=== PATIENT | female | born 1980 | race Caucasian/White ===

== ENCOUNTER 2021-05-25 18:10 | Emergency (ER) | payer MEDICAID, SELFPAY ==
--- NOTE | 2021-05-25 | ECG_ITS ---
Test Reason : CP Blood Pressure : / mmHG Vent. Rate : 097 BPM Atrial Rate : 097 BPM P-R Int : 156 ms QRS Dur : 092 ms QT Int : 370 ms P-R-T Axes : 044 011 043 degrees QTc Int : 469 ms Normal sinus rhythm Normal ECG No previous ECGs available Referred By: Generic ED Physician Electronically Signed By:JAKE AMADOR
[2021-05-25 18:12] VITALS: BP 143/81; PULSE 98; RESP 16; TEMP 36.6; O2SAT 98; BMI 42.5
--- NOTE | 2021-05-25 20:06 | ED_ITS ---
HPI - General Adult General Chief complaint: General Medical Stated complaint: cp Time Seen by Provider: 05/25/21 20:06 Source: patient Mode of arrival: ambulatory Limitations: no limitations History of Present Illness HPI narrative: Patient's history of mild asthma no known coronary artery disease complaining of chest pains since yesterday 19:00 feel pain shark sharp pain lasting for 15 minutes associated with left arm numbness again today she had pain at 16:00 lasting for few minutes no shortness of breath no diaphoresis no relation of pain with deep breaths or left arm movements no chest pain at this time patient never had any similar pain in the past no long distance travel no leg pain Related Data Allergies Allergy/AdvReac Type Severity Reaction Status Date / Time Penicillins [PENICILLINS] Allergy Severe HIVES Unverified 06/11/20 17:56 Review of Systems Review of Systems: Yes all other systems are reviewed and are negative [facility] Social History Social History Advance Directives: No Physical Exam Vital Signs: Vital Signs: Last Vital Signs Temp 98.1 F 05/25/21 20:19 Pulse 87 05/25/21 20:19 Resp 18 05/25/21 20:19 BP 141/93 H 05/25/21 20:19 Pulse Ox 99 05/25/21 20:19 Body Mass Index 42.5 Appearance: Alert. Oriented X3. No acute distress. Eyes: No pallor/ icterus ENT: Pharynx normal. Oral Mucosa moist Neck: Normal inspection. Neck supple. CVS: Normal heart rate and rhythm. Pulses normal. Respiratory: No respiratory distress. Equal air entry bilateral, no wheezing/rales/rhonchi Abdomen: Soft and nontender. Bowel sounds are present, no mass palpable, no CVA tenderness Skin: Skin warm and dry. Normal skin color. Normal skin turgor. Extremities: No lower extremity edema. No calf tenderness Neuro: Oriented X 3. Medical Decision Making MDM Narrative Medical decision making narrative: Paper atypical chest pain for more than 6 hours duration EKG was normal no acute ischemic changes lab test high sensitive troponin, D-dimer negative patient pain likely musculoskeletal. No chest pain at this time in the ER will discharge patient home Lab Data Lab results reviewed: Yes I reviewed the patient's lab results. Result diagrams: 05/25/21 20:42 05/25/21 20:42 Labs: Lab Results 05/25/21 05/25/21 05/25/21 Range/Units 20:42 20:42 20:42 WBC 8.9 (4.8-10.8) X10*3/uL RBC 4.31 (4.20-5.50) X10*6/uL Hgb 13.4 (12.0-16.0) g/dl Hct 39.0 (37-47) % MCV 90.5 (80-98) fL MCH 31.1 (27.0-33.0) pg MCHC 34.4 (31.0-35.0) g/dl RDW 12.5 (11.0-16.0) % Plt Count 211 (160-400) X10*3/uL MPV 10.4 (9.4-12.3) fL Immature Gran % (Auto) 0.2 (0.0-0.4) % Neut % (Auto) 72.1 (45-73) % Lymph % (Auto) 22.0 (20-40) % Chilton % (Auto) 5.0 (2-11) % Eos % (Auto) 0.3 (0-4) % Baso % (Auto) 0.4 (0-2) % Lymph # (Auto) 2.0 (1.2-4.9) X10*3/uL Chilton # (Auto) 0.5 (0.1-1.2) X10*3/uL Eos # (Auto) 0.0 (0.0-0.4) X10*3/uL Baso # (Auto) 0.0 (0.0-0.2) X10*3/uL Abs Immat Gran (auto) 0.02 (0.00-0.03) X10*3/uL Absolute Neuts (auto) 6.4 (2.0-8.3) X10*3/uL Absolute Nucleated RBC 0.000 (0.0-0.012) X10*3/uL Nucleated RBC % (auto) 0.0 (0.0-0.2) /100WBC D-Dimer < 200 NG/ML Sodium 138 (135-145) mmol/L Potassium 3.5 (3.3-5.1) mmol/L Chloride 108 (96-108) mmol/L Carbon Dioxide 21 L (22-29) mmol/L Anion Gap 13 (12-20) BUN 12 (9-16) mg/dL Creatinine 0.69 (0.5-1.4) mg/dL Estim Creat Clear Calc 149.4 Estimated GFR > 60 Random Glucose 95 (60-115) mg/dL Calcium 9.4 (8.4-10.2) mg/dL Troponin I High Sens (<3.5-17.0) ng/L 05/25/21 Range/Units 20:42 WBC (4.8-10.8) X10*3/uL RBC (4.20-5.50) X10*6/uL Hgb (12.0-16.0) g/dl Hct (37-47) % MCV (80-98) fL MCH (27.0-33.0) pg MCHC (31.0-35.0) g/dl RDW (11.0-16.0) % Plt Count (160-400) X10*3/uL MPV (9.4-12.3) fL Immature Gran % (Auto) (0.0-0.4) % Neut % (Auto) (45-73) % Lymph % (Auto) (20-40) % Chilton % (Auto) (2-11) % Eos % (Auto) (0-4) % Baso % (Auto) (0-2) % Lymph # (Auto) (1.2-4.9) X10*3/uL Chilton # (Auto) (0.1-1.2) X10*3/uL Eos # (Auto) (0.0-0.4) X10*3/uL Baso # (Auto) (0.0-0.2) X10*3/uL Abs Immat Gran (auto) (0.00-0.03) X10*3/uL Absolute Neuts (auto) (2.0-8.3) X10*3/uL Absolute Nucleated RBC (0.0-0.012) X10*3/uL Nucleated RBC % (auto) (0.0-0.2) /100WBC D-Dimer NG/ML Sodium (135-145) mmol/L Potassium (3.3-5.1) mmol/L Chloride (96-108) mmol/L Carbon Dioxide (22-29) mmol/L Anion Gap (12-20) BUN (9-16) mg/dL Creatinine (0.5-1.4) mg/dL Estim Creat Clear Calc Estimated GFR Random Glucose (60-115) mg/dL Calcium (8.4-10.2) mg/dL Troponin I High Sens < 3.5 (<3.5-17.0) ng/L ECG Data Attestation: I personally reviewed and interpreted this ECG as follows: Interpretation: Numbers and rhythm heart rate 97 beats per minute normal intervals normal axis no acute ST T wave changes impression normal EKG Scores Heart Score History: -0- slightly suspicious ECG: -0- normal Age: -0- < or = 45 Risk factory: -0- no risk factors known Troponin: -0- < or = normal limit Score: 0 Risk: 1.7% Discharge Plan Discharge Clinical Impression: Chest pain Qualifiers: Chest pain type: unspecified Qualified Code(s): R07.9 - Chest pain, unspecified Patient Disposition: Home, Self-Care Instructions: Chest Pain (ED) Additional Instructions: The chest pain is likely musculoskeletal. Follow up with PCP for further evaluation including stress test
[2021-05-25 20:19] VITALS: BP 141/93; PULSE 87; RESP 18; TEMP 36.7; O2SAT 99
[2021-05-25 20:48] LABS: Basophils Percent Auto 0.4 % (0-2); Eosinophils Percent Auto 0.3 % (0-4); Hemoglobin 13.4 g/dl (12.0-16.0); Imm Gran Abs Auto 0.02 X10*3/uL (0.00-0.03); Imm Gran Pct Auto 0.2 % (0.0-0.4); MANUAL DIFF FLAG NO; Mean Corpuscular HGB Conc 34.4 g/dl (31.0-35.0); Mean Corpuscular Hemoglobin 31.1 pg (27.0-33.0); Mean Corpuscular Volume 90.5 fL (80-98); Mean Platelet Volume 10.4 fL (9.4-12.3); Monocytes Absolute Auto 0.5 X10*3/uL (0.1-1.2); Neutrophils Absolute Auto 6.4 X10*3/uL (2.0-8.3); Neutrophils Percent Auto 72.1 % (45-73); Platelet Count 211 X10*3/uL (160-400); Red Blood Count 4.31 X10*6/uL (4.20-5.50); Red Cell Distribution Width 12.5 % (11.0-16.0); White Blood Count 8.9 X10*3/uL (4.8-10.8)
[2021-05-25 20:58] LABS: D Dimer < 200 NG/ML
[2021-05-25 21:11] LABS: Anion Gap 13 (12-20); Blood Urea Nitrogen 12 mg/dL (9-16); Calcium 9.4 mg/dL (8.4-10.2); Carbon Dioxide 21 mmol/L (22-29); Chloride 108 mmol/L (96-108); Creatinine Clr Calc Pharmacy 149.4; Estimated Glomerular Filt Rate > 60; Glucose Random 95 mg/dL (60-115); Potassium 3.5 mmol/L (3.3-5.1); Sodium 138 mmol/L (135-145)
[2021-05-25 21:19] LABS: Troponin-I High Sensitivity < 3.5 ng/L (<3.5-17.0)
== END 2021-05-25 21:43 | disposition home or self-care (01) ==
PROVIDERS: Emergency Provider Internal Medicine; PCP Student in an Organized Health Care Education/Training Program
DX: R07.9 Chest pain, unspecified (principal)
CPT/HCPCS: 36415; 80048; 84484; 85025; 85379; 93005; 99283; 99284

== ENCOUNTER 2025-01-31 10:29 | Outpatient (REF) | payer OTHER, SELFPAY ==
--- OUTSIDE RECORDS SUMMARY | 2025-01-31 10:59 | XMS_ITS | Encounter Summary ---
Author Organization [employer] Address [address] [facility] [address] [place] [address] Care Team Providers Care Veneer Layer Name Role Phone Loretta Sullivan MD Primary Care Provider [phone] Reason for Visit * Reason Onset Date Comments Medication Question 10/17/2024 Med Refill 10/17/2024 Encounter Details Date Type Department Care Team ([facility] st Contact Info) Description 10/17/2024 Telephone [facility] [address] [place] [address] Loretta Sullivan MD [address] [place] [address] Medication Question; Med Refill Social History Tobacco Use Types Packs/Day Years Used Date Smoking Tobacco: Never Passive Smoke Exposure: Never Smokeless Tobacco: Never Alcohol Use Standard Drinks/Week Comments Never 0 (1 standard drink = 0.6 oz pur e alcohol) Depression Answer Date Recorded Patient Health Questionnaire-9 Score 2 06/14/2023 Housing Stability Answer Date Recorded What is your housing situation today? I have christopher beckman 07/18/[address] you li ve. Do you have problems with any of the following? None of the above 07/18/2024 Food Insecurity Answer Date Recorded Within the past 12 months, y ou worried that your food would run out before you got money to buy more: Never True 07/18/2024 Within the past 12 months,th e food you bought just didn't last and you didn't have enough money to get more: Never True Transportation Answer Date Recorded In the past 12 months, has l ack of transportation kept you from medical appts, meetings, work or from getting things needed for daily living? No 07/18/2024 Utilities Answer Date Recorded In the past 12 months, has t he electric, gas, oil or water company threatened to shut off services in your home? No 07/18/2024 Depression Answer Date Recorded Patient Health Questionnaire-2 Score 2 06/14/2023 Internet Access Answer Date Recorded Internet Access Q1 Yes 07/18/2024 Internet Access Q2 Not on file 07/18/2024 Comments Unknown Sex and Gender Information Value Date Recorded Sex Assigned at Female 07/25/2022 10:21 AM EDT Legal Sex Female 10:21 AM EDT Gender Identity Female 07/25/2022 10:21 AM EDT Sexual Orientation Straight 07/25/2022 10 :21 AM EDT documented as of this encounter Miscellaneous Notes * Telephone Encounter - Loretta Sullivan MD - 10/22/2024 8:46 AM EST Dose increase after 8 weeks * Telephone Encounter - Ifeoma Rosas RN - 10/21/2024 3:02 PM EST TC to patient. Informed her that RN had not heard from Dr. Sullivan, and advised patient to continue on current medication dose until Dr. Sullivan orders otherwise. Called pharm and patient does have 1 refill available. Reviewed plan with patient who verbally agreed with plan. Patient will call with any other questions or concerns. * Telephone Encounter - Anita Aburto - 10/18/2024 1:04 PM EST Tc from pt requesting status of medication Callback number [phone] * Telephone Encounter - Wilner Foreman - 10/17/2024 11:13 AM EST Tc from pt stating that she finished her first month of the med Tirzepatide-Weight Management (Zepbound) 2.5 MG/0.5ML solution auto-injector Pt needs a refill but doesn't know id she will be receiving a Increase in the Dosage of the Medication or if its staying the same. Contact pt at [phone] documented in this encounter Plan of Treatment Upcoming Encounters Date Type Department Care Team ([facility] st Contact Info) Description 05/09/2025 11:30 AM EDT Office Visit [facility] [address] [place] [address] Loretta Sullivan MD [address] [place] [address] documented as of this encounter Visit Diagnoses Not on filedocumented in this encounter Additional Health Concerns Assessment Noted Time PHQ-9 Depression Total Score: 2 06/14/20 23 9:46 AM EDT documented as of this encounter Care Teams Veneer Layer Relationship Specialty Start Date End Date Loretta Sullivan MD [address] [place] [id number] PCP - General Family Medicine 10/01/13 documented as of this encounter
--- OUTSIDE RECORDS SUMMARY | 2025-01-31 10:59 | XMS_ITS | Clinical Summary ---
Author Organization [facility] Address [address] [place] [address] Phone Care Team Providers Care Rn Pacu Name Role Phone Loretta Sullivan MD Primary Care Provider [phone] Social History Tobacco Use Types Packs/Day Years Used Date Smoking Tobacco: Never Assessed Comments No Sex and Gender Information Value Date Recorded Sex Assigned at Female 09/17/2024 8:41 AM EST Legal Sex Female 10:16 AM EST Gender Identity Female 09/17/2024 8:41 AM EST Sexual Orientation Straight 09/17/2024 8: 41 AM EST Obstetrics History Para Term AB IAB SAB Ectopic Multiple Livin g Live Births 2 Last Filed Vital Signs Vital Sign Reading Time Taken Comments Blood Pressure 130/70 07/15/2022 9:08 AM EDT Pulse 104 07/15/2022 9:08 AM EDT Temperature - - Respiratory Rate - - Oxygen Saturation - - Inhaled Oxygen Concentration - - Weight 137 kg (301 lb) 09/20/2024 11:26 AM EST Height 172.7 cm (5' 8 ) 09/20/2024 11:26 AM EST Body Mass Index 45.77 09/20/2024 11:26 AM EST Plan of Treatment Upcoming Encounters Date Type Department Care Team (Late st Contact Info) Description 09/22/2025 11:00 AM EST Appointment [facility] [address] [place] [address] Health Maintenance Due Date Last Done Comments Hepatitis B Vaccines (1 of 3 - 19+ 3-dose series) 1998 Pneumococcal Vaccine: Pediatrics (0 to 5 Years) and At-Risk Patients (6 to 64 Years) (1 of 2 - PCV) 1998 Cervical Cancer Screening: Pap Smear 2000 Colorectal Cancer Screening: Colonoscopy 09/04/2022 HIV Screening 09/04/2022 Hepatitis C Screening 09/04/2022 Social Influencers of Health Screening 09/04/2022 COVID-19 Vaccine (3 - season) 2024 01/01/2021, 12/11/2020 Depression Screening 06/14/2024 06/14/2023 Breast Cancer Screening 09/20/2026 09/20/2024, 07/18 Cholesterol Screening (Lipid Panel) 12/13/2026 12/13/2021 DTaP,Tdap,and Td Vaccines (3 - Td or Tdap) 02/01/2028 01/31/2018, 09/27/2004 Influenza Vaccine Completed 07/04/2024, , 06/21/2022, Additional history exists HIB Vaccines Aged Out No longer eligi ble based on patient's age to complete this topic HPV Vaccines Aged Out No longer eligi ble based on patient's age to complete this topic Hepatitis A Vaccines Aged Out No long er eligible based on patient's age to complete this topic IPV Vaccines Aged Out No longer eligi ble based on patient's age to complete this topic MMR Vaccines Aged Out No longer eligi ble based on patient's age to complete this topic Meningococcal ACWY Vaccine Aged Out N o longer eligible based on patient's age to complete this topic Meningococcal B Vaccine Aged Out No l onger eligible based on patient's age to complete this topic RSV Immunization Patients Under 20 months Aged Out No longer eligible based on patient's age to complete this topic Varicella Vaccines Aged Out No longer eligible based on patient's age to complete this topic Procedures Procedure Name Priority Date/Time Associated Diagnosis Comments MG MAMMO DIGITAL DIAGNOSTIC BILAT Routine 09/20/2024 1:06 PM EST Other abnormal and inconclusive findings on diagnostic imaging of breast from Last 3 Months or Most Recently Relevant to Health Maintenance Results * MG Mammo Digital Diagnostic bilat (09/20/2024 1:06 PM EST) Anatomical Region Laterality Modality Breast Bilateral Mammography 09/20/2024 11:5 2 AM EST Impressions 09/20/2024 12:00 PM EST No mammographic evidence of malignancy. A negative mammogram in the presence of a clinically suspicious palpable abnormality does not preclude the possibility of malignancy or alter the indications for biopsy. PQRI CPT II 3342F Code 89885, 83531 PQRI 225 CPT II 7025F TISSUE DENSITY: The breasts are almost entirely fatty. (BI-RADS ??Category A) IMPRESSION: Benign. ??Resumption of routine annual mammography is recommended. BI-RADS CATEGORY: 2 - BENIGN RECOMMENDATION: Screening bilateral mammogram is recommended in 1 year. Mammo Location: [facility], [address] [place] [address] -------- FINAL REPORT -------- Dictated By: Mathew Butler Dictated Date: 09/20/2024 11:52 ET Assigned Physician: Mathew Butler Reviewed and Electronically Signed By: Mathew Butler Signed Date: 09/20/2024 12:00 ET Workstation ID: [id number] Transcribed By: Self Edit Transcribed Date: 09/20/2024 11:52 ET Narrative 09/20/2024 12:00 PM EST CLINICAL: The patient is a 44 years Female presenting for follow-up of a 7 mm diameter asymmetry in the lower inner quadrant of the right breast, and for annual mammography of the left breast. COMPARISON: 03/22/2024, 07/27/2023, and 07/15/2023. ?? TECHNIQUE: Full-field digital mammography of the breasts bilaterally consisting of tomosynthesis in MLO and CC projection is performed in the [employer] 2000-D unit. ??Computer aided detection utilizing the iCAD system was utilized. FINDINGS: The breasts are again seen to be largely fatty replaced. ??The 7 mm diameter asymmetry in the lower inner quadrant of the right breast, containing fat, remains stable. ??There is no suspicious cluster of microcalcifications, mass, or area of architectural distortion in either breast. There is no skin thickening or nipple retraction. Procedure Note Mathew Butler MD - 09/20/2024 CLINICAL: The patient is a 44 years Female presenting for follow-up of a 7mm diameter asymmetry in the lower inner quadrant of the right breast, andfor annual mammography of the left breast. COMPARISON: 03/22/2024, 07/27/2023, and 07/15/2023. TECHNIQUE: Full-field digital mammography of the breasts bilaterallyconsisting of tomosynthesis in MLO and CC projection is performed in the[employer] 2000-D unit. Computer aided detection utilizing the [employer] Health[employer]system was utilized. FINDINGS: The breasts are again seen to be largely fatty replaced. The 7mm diameter asymmetry in the lower inner quadrant of the right breast,containing fat, remains stable. There is no suspicious cluster ofmicrocalcifications, mass, or area of architectural distortion in eitherbreast. There is no skin thickening or nipple retraction. IMPRESSION: No mammographic evidence of malignancy. A negative mammogram in the presence of a clinically suspicious palpableabnormality does not preclude the possibility of malignancy or alter theindications for biopsy. PQRI CPT II 3342F Code 68590, 90981 PQRI 225 CPT II 7025F TISSUE DENSITY: The breasts are almost entirely fatty. (BI-RADS CategoryA) IMPRESSION: Benign. Resumption of routine annual mammography is recommended. BI-RADS CATEGORY: 2 - BENIGN RECOMMENDATION: Screening bilateral mammogram is recommended in 1 year. Mammo Location: [facility], [address] [place] [address] -------- FINAL REPORT -------- Dictated By: Mathew Butler Dictated Date: 09/20/2024 11:52 ET Assigned Physician: Mathew Btuler Reviewed and Electronically Signed By: Mathew Butler Signed Date: 09/20/2024 12:00 ET Workstation ID: [id number] Transcribed By: Self Edit Transcribed Date: 09/20/2024 11:52 ET us Loretta Sullivan MD IMG BI PROCEDURES Final Result from Last 3 Months or Most Recently Relevant to Health Maintenance Insurance MEDICAID - [place] Care Teams Rn Pacu Relationship Specialty Start Date End Date Loretta Sullivan MD [address] [place] [id number] PCP - General Family Medicine 09/20/24
--- OUTSIDE RECORDS SUMMARY | 2025-01-31 10:59 | XMS_ITS | Encounter Summary ---
Author Organization [employer] Address [address] [place] [address] Care Team Providers Care Link Fabric Machine Operator Name Role Phone Loretta Sullivan MD Primary Care Provider [phone] Encounter Details Date Type Department Care Team (Latest Contact Info) Description 01/31/2025 Travel Social History Tobacco Use Types Packs/Day Years [...] AM EDT documented as of this encounter Plan of Treatment Upcoming Encounters Date Type Department Care Team (Late st Contact Info) Description 05/09/2025 11:30 AM EDT Office Visit [facility] [address] [place] [address] Loretta Sullivan MD [address] [place] [address] documented as of this encounter Visit Diagnoses Not on filedocumented in this encounter Additional Health Concerns Assessment Noted Time PHQ-9 Depression Total Score: 2 06/14/20 23 9:46 AM EDT documented as of this encounter Care Teams Link Fabric Machine Operator Relationship Specialty Start Date End Date Loretta Sullivan MD [address] [place] [id number] PCP - General Family Medicine 10/01/13 documented as of this encounter
--- OUTSIDE RECORDS SUMMARY | 2025-01-31 10:59 | XMS_ITS | Encounter Summary ---
Author Organization [employer] Address [address] [facility] [address] [place] [address] Care Team Providers Care Doll Wig Maker Name Role Phone Loretta Sullivan MD Primary Care Provider [phone] Encounter Details Date Type Department Care Team (Late st Contact Info) Description 09/20/2024 Orders Only [place] [facility] [address] [place], [place] [phone] ProviderAllison MD Social History Tobacco Use Types Packs/Day Years [...] Description 05/09/2025 11:30 AM EDT Office Visit [facility] [address] [place] [address] Loretta Sullivan MD [address] [place] [address] documented as of this encounter Procedures Procedure Name Priority Date/Time Associated Diagnosis Comments MAMMO BILATERAL SCREENING W DIAGNOSTIC TOMOSYNTHESIS BILATERAL Routine 09/20/2024 2:58 PM EST documented in this encounter Results * MAMMO BILATERAL SCREENING W DIAGNOSTIC TOMOSYNTHESIS BILATERAL (09/20/2024 2:58 PM EST) Anatomical Region Laterality Modality Mammography Historical Provider MD CHAVES BI PROCEDURES Final R esult documented in this encounter Visit Diagnoses Not on filedocumented in this encounter Additional Health Concerns Assessment Noted Time PHQ-9 Depression Total Score: 2 06/14/20 23 9:46 AM EDT documented as of this encounter Care Teams Doll Wig Maker Relationship Specialty Start Date End Date Loretta Sullivan MD [address] [place] [id number] PCP - General Family Medicine 10/01/13 documented as of this encounter
--- OUTSIDE RECORDS SUMMARY | 2025-01-31 10:59 | XMS_ITS | Encounter Summary ---
Author Organization [employer] Address [address] [facility] [address] [place] [address] Care Team Providers Care Service Center Technician Name Role Phone Loretta Sullivan MD Primary Care Provider [phone] Encounter Details Date Type Department Care Team (Late st Contact Info) Description 03/22/2024 Orders Only [place] [address] [place], [place] [phone] ProviderAllison MD Social History Tobacco Use Types Packs/Day Years Used Date Smoking Tobacco: Never Passive Smoke Exposure: Never Smokeless Tobacco: Never Alcohol Use Standard Drinks/Week Comments Never 0 (1 standard drink = 0.6 oz pur e alcohol) Depression Answer Date Recorded Patient Health Questionnaire-9 Score 2 06/14/2023 Housing Stability Answer Date Recorded What is your housing situation today? I have christopher beckman 07/19/[address] you li ve. Do you have problems with any of the following? None of the above 07/19/2023 Food Insecurity Answer Date Recorded Within the past 12 months, y ou worried that your food would run out before you got money to buy more: Never True 07/19/2023 Within the past 12 months,th e food you bought just didn't last and you didn't have enough money to get more: Never True Transportation Answer Date Recorded In the past 12 months, has l ack of transportation kept you from medical appts, meetings, work or from getting things needed for daily living? No 07/19/2023 Utilities Answer Date Recorded In the past 12 months, has t he electric, gas, oil or water company threatened to shut off services in your home? No 07/19/2023 Depression Answer Date Recorded Patient Health Questionnaire-2 Score 2 06/14/2023 Comments Unknown Sex and Gender Information Value [...] Description 05/09/2025 11:30 AM EDT Office Visit [facility] PEDS [address] [place] [address] Loretta Sullivan MD [address] [place] [address] documented as of this encounter Procedures Procedure Name Priority Date/Time Associated Diagnosis Comments MAMMO DIAGNOSTIC TOMOSYNTHESIS RIGHT Routine 03/22/2024 1:03 PM EDT MAMMO DIAGNOSTIC TOMOSYNTHESIS RIGHT Routine 03/22/2024 1:02 PM EDT documented in this encounter Results * MAMMO DIAGNOSTIC TOMOSYNTHESIS RIGHT (03/22/2024 1:03 PM EDT) Anatomical Region Laterality Modality Mammography Historical Provider MD CHAVES BI PROCEDURES Final R esult * MAMMO DIAGNOSTIC TOMOSYNTHESIS RIGHT (03/22/2024 1:02 PM EDT) Anatomical Region Laterality Modality Mammography Historical Provider MD CHAVES BI PROCEDURES Final R esult documented in this encounter Visit Diagnoses Not on filedocumented in this encounter Additional Health Concerns Assessment Noted Time PHQ-9 Depression Total Score: 2 06/14/20 23 9:46 AM EDT documented as of this encounter Care Teams Service Center Technician Relationship Specialty Start Date End Date Loretta Sullivan MD [address] [place] [id number] PCP - General Family Medicine 10/01/13 documented as of this encounter
--- OUTSIDE RECORDS SUMMARY | 2025-01-31 10:59 | XMS_ITS | Encounter Summary ---
Author Organization [employer] Address [address] [facility] [facility] [address] [place] [address] Care Team Providers Care Director Fraud Name Role Phone Loretta Sullivan MD Primary Care Provider [phone] Reason for Visit * Reason Comments Med Change Request Encounter Details Date Type Department Care Team ([facility] st Contact Info) Description 04/29/2024 Refill [facility] MED & PEDS [address] [place], [place] [phone] Loretta Sullivan MD 505 [place] [address] Social History Tobacco Use Types Packs/Day Years [...] Description 05/09/2025 11:30 AM EDT Office Visit [facility] MED & PEDS 505 [place] [address] Loretta Sullivan MD 505 [place] [address] documented as of this encounter Visit Diagnoses Not on filedocumented in this encounter Additional Health Concerns Assessment Noted Time PHQ-9 Depression Total Score: 2 06/14/20 23 9:46 AM EDT documented as of this encounter Care Teams Director Fraud Relationship Specialty Start Date End Date Loretta Sulilvan MD [address] [place] [address] PCP - General Family Medicine 10/01/13 documented as of this encounter
--- OUTSIDE RECORDS SUMMARY | 2025-01-31 10:59 | XMS_ITS | Encounter Summary ---
Author Organization [employer] Address [address] 7t [place] [address] Care Team Providers Care Pickler Helper Name Role Phone Loretta Sullivan MD Primary Care Provider [phone] Reason for Visit * Reason Onset Date Comments Nurse Triage 01/30/2025 Encounter Details Date Type Department Care Team (Late st Contact Info) Description 01/30/2025 Telephone [facility] MEDICINE [address] [place] [address] Loretta Sullivan MD [address] [place] [address] Nurse Triage Social History Tobacco Use Types Packs/Day Years Used Date Smoking Tobacco: Never Passive Smoke Exposure: Never Smokeless Tobacco: Never Alcohol Use Standard Drinks/Week Comments Never 0 (1 standard drink = 0.6 oz pur e alcohol) Depression Answer Date Recorded Patient Health Questionnaire-9 Score 2 06/14/2023 Housing Stability Answer Date Recorded What is your housing situation today? I have christopheryasmine beckman 07/18/[address] you [...] t he electric, gas, oil or water [employer] threatened to shut off services in your [...] encounter Miscellaneous Notes * Telephone Encounter - Kaley Abdi RN - 01/30/2025 1:00 PM EDT Called pt. She states that she is doing well but, she wants an appt. With her PCP. Pt. States that she has a HX. Of Anxiety but, when she got her Thyroid out x 6 months ago her Anxiety has worsened. Pt. Gets heart racing and worrisome during Anxiety. Pt. States some things have come up in her life that have also increased her Anxiety. Pt. Is receptive to seeing alternate provider. Pt denies any thoughts of suicide or self harm. Pt. Denies any sx. Of Anxiety at present but, wants to address increase in frequency. Appt. Made for pt. To see dr. Ahn on 01/31/25 at 940am in [facility]. Protocol Used: Anxiety and Panic Attack (Adult) Protocol-Based Disposition: See in Office or Video Visit within 2 Weeks Video visit offer not recorded Positive Triage Question: * Symptoms of anxiety or panic attack and is a chronic symptom (recurrent or ongoing AND present > 4 weeks) * All higher-acuity triage questions were negative * Telephone Encounter - Anita Aburto - 01/30/2025 12:47 PM EDT Tc from pt returning call in regards prior message. Please return call [phone] * Telephone Encounter - Carrie Henao - 01/30/2025 10:51 AM EDT Symptom: Anxiety or Panic Attack Outcome: Schedule an appointment to be seen within 3 days Reason: Caller denied all higher acuity questions The caller accepted this outcome. documented in this encounter Plan of Treatment Upcoming Encounters Date Type Department Care Team ([facility] st Contact Info) Description 05/09/2025 11:30 AM EDT Office Visit [facility] MED & PEDS [address] [place] [address] Loretta Sullivan MD 505 [place] [address] documented as of this encounter Visit Diagnoses Not on filedocumented in this encounter Additional Health Concerns Assessment Noted Time PHQ-9 Depression Total Score: 2 06/14/20 23 9:46 AM EDT documented as of this encounter Care Teams Pickler Helper Relationship Specialty Start Date End Date Loretta Sullivan MD [address] [place] [address] PCP - General Family Medicine 10/01/13 documented as of this encounter
--- OUTSIDE RECORDS SUMMARY | 2025-01-31 10:59 | XMS_ITS | Encounter Summary ---
Author Organization [employer] Address [address] [facility] 7t [place] [address] Care Team Providers Care Millinery Blocker Name Role Phone Loretta Sullivan MD Primary Care Provider [phone] Reason for Visit * Reason Onset Date Comments Appointment Request 10/01/2024 Encounter Details Date Type Department Care Team ([facility] st Contact Info) Description 10/01/2024 Telephone [facility] CHC MED & PEDS [address] [place], [place] [phone] Loretta Sullivan MD 505 [place] [address] Appointment Request Social History Tobacco Use Types Packs/Day Years [...] encounter Miscellaneous Notes * Telephone Encounter - Karlee Melendrez - 10/01/2024 11:07 AM EST Tc from pt requesting to r/s PAP appt. documented in this encounter Plan of Treatment Upcoming Encounters Date Type Department Care Team (Late st Contact Info) Description 05/09/2025 11:30 AM EDT Office Visit [facility] MED & PEDS 505 [place] [address] Loretta Sullivan MD 505 [place] [address] documented as of this encounter Visit Diagnoses Not on filedocumented in this encounter Additional Health Concerns Assessment Noted Time PHQ-9 Depression Total Score: 2 06/14/20 23 9:46 AM EDT documented as of this encounter Care Teams Millinery Blocker Relationship Specialty Start Date End Date Loretta Sullivan MD [address] [place] [address] PCP - General Family Medicine 10/01/13 documented as of this encounter
--- OUTSIDE RECORDS SUMMARY | 2025-01-31 10:59 | XMS_ITS | Encounter Summary ---
Author Organization [employer] Address [address] [facility] 7t [place] [address] Care Team Providers Care Hob Grinder Name Role Phone Loretta Sullivan MD Primary Care Provider [phone] Reason for Visit * Reason Onset Date Comments Med Refill 10/25/2024 Medication Question 10/25/2024 Encounter Details Date Type Department Care Team ([facility] st Contact Info) Description 10/25/2024 Telephone [facility] MEDICINE 230 [place] [address] Loretta Sullivan MD [address] [place] [address] Med Refill; Medication Question Social History Tobacco Use Types Packs/Day Years [...] encounter Miscellaneous Notes * Telephone Encounter - Radhika Pretty LPN - 10/25/2024 12:19 PM EST Medication pended to provider for approval. * Telephone Encounter - Wilner Foreman - 10/25/2024 12:15 PM EST TC from pt requesting status on refill for med ibuprofen 600 MG tablet. Pt states needs this medication. Contact pt at documented in this encounter Plan of Treatment Upcoming Encounters Date Type Department Care Team (Late st Contact Info) Description 05/09/2025 11:30 AM EDT Office Visit [facility] MED & PEDS 505 [place] [address] Loretta Sullivan MD 505 [place] [address] documented as of this encounter Visit Diagnoses Not on filedocumented in this encounter Additional Health Concerns Assessment Noted Time PHQ-9 Depression Total Score: 2 06/14/20 23 9:46 AM EDT documented as of this encounter Care Teams Hob Grinder Relationship Specialty Start Date End Date Loretta Sullivan MD [address] [place] [address] PCP - General Family Medicine 10/01/13 documented as of this encounter
--- OUTSIDE RECORDS SUMMARY | 2025-01-31 10:59 | XMS_ITS | Encounter Summary ---
Author Organization [employer] Address [address] 7t [place] [address] Care Team Providers Care Customer Engineering Specialist Name Role Phone Loretta Sullivan MD Primary Care Provider [phone] Reason for Visit * Reason Onset Date Comments From(s) 12/29/2023 Encounter Details Date Type Department Care Team ([facility] st Contact Info) Description 12/29/2023 Telephone [facility] MEDICINE [address] [place] [address] Loretta Sullivan MD [address] [place] [address] From(s) Social History Tobacco Use Types Packs/Day Years [...] encounter Miscellaneous Notes * Telephone Encounter - Maurice Mustafa - 12/29/2023 1:22 PM EDT Tc from pt requesting status on [employer] medical protection form. Please contact pt at [phone] documented in this encounter Plan of Treatment Upcoming Encounters Date Type Department Care Team (Late st Contact Info) Description 05/09/2025 11:30 AM EDT Office Visit [facility] MED & PEDS 505 [place] [address] Loretta Sullivan MD 505 [place] [address] documented as of this encounter Visit Diagnoses Not on filedocumented in this encounter Additional Health Concerns Assessment Noted Time PHQ-9 Depression Total Score: 2 06/14/20 23 9:46 AM EDT documented as of this encounter Care Teams Customer Engineering Specialist Relationship Specialty Start Date End Date Loretta Sullivan MD [address] [place] [address] PCP - General Family Medicine 10/01/13 documented as of this encounter
--- OUTSIDE RECORDS SUMMARY | 2025-01-31 10:59 | XMS_ITS | Encounter Summary ---
Author Organization [employer] Address [address] 7[address] [place] [address] Care Team Providers Care Vender Name Role Phone Loretta Sullivan MD Primary Care Provider [phone] Encounter Details Date Type Department Care Team ([facility] st Contact Info) Description 07/31/2024 Telephone [facility] CHC MED & PEDS [address] [place], [place] [phone] Loretta Sullivan MD 505 [place] [address] Social History Tobacco Use Types Packs/Day Years [...] * Telephone Encounter - Karlee Melendrez - 07/31/2024 11:37 AM EST Tc from [facility] with [facility] calling to inform medication fluticasone (Flovent) 110 MCG/ACT inhaler has been discontinued and insurance now covers pulmicort flexhaler. Also informs medication Mometasone Furoate (Asmanex HFA) 100 MCG/ACT aerosol is on back order. Bestcontact # to clarify [phone]. documented in this encounter Plan of Treatment Upcoming Encounters Date Type Department Care Team (Late st Contact Info) Description 05/09/2025 11:30 AM EDT Office Visit [facility] MED & PEDS [address] [place] [address] Loretta Sullivan MD [address] [place] [address] documented as of this encounter Visit Diagnoses Not on filedocumented in this encounter Additional Health Concerns Assessment Noted Time PHQ-9 Depression Total Score: 2 06/14/20 23 9:46 AM EDT documented as of this encounter Care Teams Vender Relationship Specialty Start Date End Date Loretta Sullivan MD [address] [place] [address] PCP - General Family Medicine 10/01/13 documented as of this encounter
--- OUTSIDE RECORDS SUMMARY | 2025-01-31 10:59 | XMS_ITS | Encounter Summary ---
Author Organization [employer] Address [address] [facility] 7 [place] [address] Care Team Providers Care Dependency Director Name Role Phone Loretta Sullivan MD Primary Care Provider [phone] Reason for Referral * Consultation (Routine) - Authorized Specialty Diagnoses / Procedures Referred By Raisa solomon Referred To Contact Behavioral Health Diagnoses Anxiety Julia Ahn MD 505 [place] [address] Phone: tel: fax: Referral ID Status Reason Start Date Expiration Date Visits Requested Visits Authorized [id number] Authorized Specialty Services Required 01/31/2025 01/31/2026 1 1 Encounter Details Date Type Department Care Team (Latest Contact Info) Description 01/31/2025 9:40 AM EDT Office Visit [facility] CHC MED & PEDS [address] [place] [address] Hypothyroidism (acquired) (Primary Dx); Anxiety Social History Tobacco Use Types Packs/Day Years [...] AM EDT documented as of this encounter Last Filed Vital Signs Vital Sign Reading Time Taken Comments Blood Pressure 132/83 01/31/2025 9:36 AM EDT Pulse 70 01/31/2025 9:36 AM EDT Temperature 37.2 ??C (98.9 ??F) 01/31/2025 9:36 AM ED T Respiratory Rate 20 01/31/2025 9:36 AM EDT Oxygen Saturation 99% 01/31/2025 9:36 AM EDT Inhaled Oxygen Concentration - - Weight 145 kg (319 lb) 01/31/2025 9:36 AM EDT Height 174 cm (5' 8.5 ) 01/31/2025 9:36 AM EDT Body Mass Index 47.8 01/31/2025 9:36 AM EDT documented in this encounter Plan of Treatment Upcoming Encounters Date Type Department Care Team (Late st Contact Info) Description 05/09/2025 11:30 AM EDT Office Visit [facility] MED & PEDS [address] [place] [address] Loretta Sullivan MD [address] [place] [address] Scheduled Orders Name Type Priority Associated Diagnoses Orde r Schedule CBC auto differential Lab Routine Hypothyroidism (acquired) Expected: 01/31/2025 (Approximate), Expires: 01/31/2026 Lipid Panel, Standard Lab Routine Hypothyroidism (acquired) Expected: 01/31/2025 (Approximate), Expires: 01/31/2026 Basic Metabolic Panel, Fasting Lab Routine Hypothyroidism (acquired) Expected: 01/31/2025 (Approximate), Expires: 01/31/2026 TSH W/Reflex to FT4 Lab Routine Hypothyroidism (acquired) Expected: 01/31/2025 (Approximate), Expires: 01/31/2026 Hemoglobin A1c Lab Routine Hypothyroidism (acquired) Expected: 01/31/2025 (Approximate), Expires: 01/31/2026 Vitamin D, 25-Hydroxy, Total, Immunoassay Lab Routine Hypothyroidism (acquired) Expected: 01/31/2025 (Approximate), Expires: 01/31/2026 Vitamin B12/Folate, Serum Panel Lab Routine Hypothyroidism (acquired) Expected: 01/31/2025, Expires: 01/31/2026 Hepatic Function Panel Lab Routine Hypothyroidism (acquired) Expected: 01/31/2025 (Approximate), Expires: 01/31/2026 Scheduled Referrals Name Type Priority Associated Diagnoses Order Schedule Referral to Behavioral Health Outpatient Referral Routine Anxiety Expected: 01/31/2025 (Approximate), Expires: 01/31/2026 documented as of this encounter Visit Diagnoses Diagnosis Hypothyroidism (acquired)- Primary Unspecified hypothyroidism Anxiety Anxiety state, unspecified documented in this encounter Additional Health Concerns Assessment Noted Time PHQ-9 Depression Total Score: 2 06/14/20 23 9:46 AM EDT documented as of this encounter Care Teams Dependency Director Relationship Specialty Start Date End Date Loretta Sullivan MD [address] [place] [address] PCP - General Family Medicine 10/01/13 documented as of this encounter
--- OUTSIDE RECORDS SUMMARY | 2025-01-31 10:59 | XMS_ITS | Encounter Summary ---
Author Organization [employer] Address [address] 7[address] [place] [address] Care Team Providers Care Cloth Measurer Name Role Phone Loretta Sullivan MD Primary Care Provider [phone] Reason for Visit * Reason Onset Date Comments Appointment Request 12/08/2023 Encounter Details Date Type Department Care Team ([facility] st Contact Info) Description 12/08/2023 Telephone [facility] MEDICINE [address] [place] [address] Loretta Sullivan MD [address] [place] [address] Appointment Request Social History Tobacco Use Types Packs/Day Years Used Date Smoking Tobacco: Never Passive Smoke Exposure: Never Smokeless Tobacco: Never Alcohol Use Standard Drinks/Week Comments Never 0 (1 standard drink = 0.6 oz pur e alcohol) Depression Answer Date Recorded Patient Health Questionnaire-9 Score 2 06/14/2023 Housing Stability Answer Date Recorded What is your housing situation today? I have christopheryasmine beckman 07/19/[address] you [...] encounter Miscellaneous Notes * Telephone Encounter - Mary Bello - 12/08/2023 9:16 AM EDT Tc from pt requesting PAP appt, no concerns at the moment. documented in this encounter Plan of Treatment Upcoming Encounters Date Type Department Care Team (Late st Contact Info) Description 05/09/2025 11:30 AM EDT Office Visit [facility] MED & PEDS [address] [place] [address] Loretta Sullivan MD [address] [place] [address] documented as of this encounter Visit Diagnoses Not on filedocumented in this encounter Additional Health Concerns Assessment Noted Time PHQ-9 Depression Total Score: 2 06/14/20 23 9:46 AM EDT documented as of this encounter Care Teams Cloth Measurer Relationship Specialty Start Date End Date Loretta Sullivan MD [address] [place] [address] PCP - General Family Medicine 10/01/13 documented as of this encounter
--- OUTSIDE RECORDS SUMMARY | 2025-01-31 10:59 | XMS_ITS | Encounter Summary ---
Author Organization [employer] Address [address] [facility] [address] [facility] [address] 7[address] [place] [address] Care Team Providers Care Community Educator Name Role Phone Loretta Sullivan MD Primary Care Provider [phone] Encounter Details Date Type Department Care Team ([facility] st Contact Info) Description 11/27/2024 Orders Only [facility] CHC MED & PEDS [address] [place], [place] [phone] Loretta Sullivan MD 505 [place] [address] Social History Tobacco Use Types Packs/Day Years [...] Description 05/09/2025 11:30 AM EDT Office Visit [facility] CHC MED & PEDS [address] [place] [address] Loretta Sullivan MD 505 [place] [address] documented as of this encounter Visit Diagnoses Not on filedocumented in this encounter Additional Health Concerns Assessment Noted Time PHQ-9 Depression Total Score: 2 06/14/20 23 9:46 AM EDT documented as of this encounter Care Teams Community Educator Relationship Specialty Start Date End Date Loretta Sullivan MD [address] [place] [address] PCP - General Family Medicine 10/01/13 documented as of this encounter
--- OUTSIDE RECORDS SUMMARY | 2025-01-31 10:59 | XMS_ITS | Encounter Summary ---
Author Organization [employer] Address [address] 7[address] [place] [address] Care Team Providers Care Accounts Receivable Specialist Name Role Phone Loretta Sullivan MD Primary Care Provider [phone] Reason for Visit * Reason Onset Date Comments Appointment Request 10/09/2024 Encounter Details Date Type Department Care Team ([facility] st Contact Info) Description 10/09/2024 Telephone [facility] MEDICINE [address] [place] [address] Loretta Sullivan MD [address] [place] [address] Appointment Request Social History Tobacco Use Types [...] Miscellaneous Notes * Telephone Encounter - Maurice Ramsey - 10/09/2024 11:10 AM EST Tc from pt requesting to reschedule today's PAP. Please contact pt at [phone]. documented in this encounter Plan of Treatment Upcoming Encounters Date Type Department Care Team (Late st Contact Info) Description 05/09/2025 11:30 AM EDT Office Visit [facility] CHC MED & PEDS [address] [place] [address] Loretta Sullivan MD [address] [place] [address] documented as of this encounter Visit Diagnoses Not on filedocumented in this encounter Additional Health Concerns Assessment Noted Time PHQ-9 Depression Total Score: 2 06/14/20 23 9:46 AM EDT documented as of this encounter Care Teams Accounts Receivable Specialist Relationship Specialty Start Date End Date Loretta Sullivan MD [address] [place] [address] PCP - General Family Medicine 10/01/13 documented as of this encounter
--- OUTSIDE RECORDS SUMMARY | 2025-01-31 11:00 | XMS_ITS | Encounter Summary ---
Author Organization [employer] Address [address] [place] [address] 7t [place] [address] Care Team Providers Care Membership Sales Manager Name Role Phone Loretta Sullivan MD Primary Care Provider [phone] Reason for Visit * Reason Comments Med Refill Encounter Details Date Type Department Care Team (Late Contact Info) Description 05/13/2023 Refill [facility] MED & PEDS [address] [place] [address] Julia Ahn MD [address] [place] [address] Mild asthma, unspecified whether complicated, unspecified whether persistent Social History Tobacco Use Types Packs/Day Years Used Date Smoking Tobacco: Never Passive Smoke Exposure: Never Smokeless Tobacco: Never Alcohol Use Standard Drinks/Week Comments Never 0 (1 standard drink = 0.6 oz pur e alcohol) Comments Unknown Sex and Gender Information Value Date Recorded Sex Assigned at Female 07/25/2022 10:21 AM EDT Legal Sex Female 10:21 AM EDT Gender Identity Female 07/25/2022 10:21 AM EDT Sexual Orientation Straight 07/25/2022 10 :21 AM EDT documented as of this encounter Plan of Treatment Upcoming Encounters Date Type Department Care Team (Late Contact Info) Description 05/09/2025 11:30 AM EDT Office Visit [facility] MED & PEDS [address] [place], [place] [phone] Loretta Sullivan MD [address] [place] [address] documented as of this encounter Visit Diagnoses Diagnosis Mild asthma, unspecified whether complicated, unspecified whether persistent documented in this encounter Care Teams Membership Sales Manager Relationship Specialty Start Date End Date Loretta Sullivan MD [address] [place] [address] PCP - General Family Medicine 10/01/13 documented as of this encounter
--- OUTSIDE RECORDS SUMMARY | 2025-01-31 11:00 | XMS_ITS | Encounter Summary ---
Author Organization [employer] Address [address] [facility] 7t [place] [address] Care Team Providers Care Chair Inspector And Leveler Name Role Phone Loretta Sullivan MD Primary Care Provider [phone] Reason for Visit * Reason Comments Med Change Request Encounter Details Date Type Department Care Team (Late Contact Info) Description 09/28/2022 Refill [facility] CHC MED & PEDS [address] [place] [address] Loretta Sullivan MD [address] [place] [address] Mild persistent asthma with acute exacerbation Social History Tobacco Use Types Packs/Day Years [...] Orientation Straight 07/25/2022 10 :21 AM EDT COVID-19 Exposure Response Date Recorded In the last 10 days, have yo u been in contact with someone who was confirmed or suspected to have Coronavirus/COVID-19? No / Unsure 09/27/2022 10:16 AM EST documented as of this encounter Plan of Treatment Upcoming Encounters Date Type Department Care Team (Late Contact Info) Description 05/09/2025 11:30 AM EDT Office Visit [facility] CHC MED & PEDS [address] [place] [address] Loretta Sullivan MD [address] [place] [address] documented as of this encounter Visit Diagnoses Diagnosis Mild persistent asthma with acute exacerbation documented in this encounter Care Teams Chair Inspector And Leveler Relationship Specialty Start Date End Date Loretta Sullivan MD [address] [place] [address] PCP - General Family Medicine 10/01/13 documented as of this encounter
--- OUTSIDE RECORDS SUMMARY | 2025-01-31 11:00 | XMS_ITS | Clinical Summary ---
Author Organization [employer] Address [address] [facility] 7[address] [place] [address] Care Team Providers Care Carton Filling Machine Operator Name Role Phone Loretta Sullivan MD Primary Care Provider [phone] Allergies Active Allergy Reactions Criticality Noted Date Comments Penicillin V Hives Low 11/11/2010 Other reaction(s): unspecified Penicillins Hives,Itching 12/30/2022 Medications ulipristal (Jolanta) 30 mg tablet Take 1 tablet (30 mg) by mouth in the morning. 30 tablet 11 023 Active ergocalciferol (Vitamin D2) 1.25 MG (51412 UT) capsule TAKE 1 CAPSULE BY MOUTH ONE TIME PER WEEK 12 capsule 3 024 Active cetirizine (ZyrTEC) 10 MG tablet TAKE 1 TABLET BY MOUTH EVERY DAY IN THE MORNING 90 tablet 3 024 Active ferrous gluconate (Fergon) 324 (38 Fe) MG tabletIndicatio ns:Iron deficiency TAKE 1 TABLET (324 MG) BY MOUTH IN THE MORNING. 90 tablet 1 024 Active D3-1000 25 MCG (1000 UT) capsule TAKE 1 CAPSULE (25 MCG) BY MOUTH IN THE MORNING. 90 capsule 3 024 Active furosemide (Lasix) 20 MG tablet TAKE 1 TABLET BY MOUTH EVERY DAY IN THE MORNING 90 tablet 3 024 Active levothyroxine (Synthroid, Levoxyl) 200 MCG tablet Take 200 mcg by mouth. 024 Active miconazole (Micatin) 2 % cream Apply topically 2 times daily. Use for 2-4 weeks until rash subsides. 113 g 2 024 Active fluticasone (Flovent) 110 MCG/ACT inhaler INHALE 2 PUFFS BY MOUTH EVERY 12 HOURS. 15 g 11 024 Active Mometasone Furoate (Asmanex HFA) 100 MCG/ACT aerosol INHALE 2 PUFFS BY MOUTH EVERY 12 HOURS. 13 g 11 024 Active budesonide (Pulmicort Flexhaler) 180 MCG/ACT inhaler Inhale 1 puff in the morning and at bedtime. Rinse mouth with water after use to reduce aftertaste and incidence of candidiasis. Do not swallow. 1 each 11 024 2024 Active bacitracin-poly myxin b (Polysporin) ointment Apply topically 2 times daily. 15 g Active silver sulfADIAZINE (Silvadene) 1 % cream Apply topically 2 times daily. 50 g 024 2024 Active betamethasone valerate (Valisone) 0.1 % ointment Apply topically if needed in the morning and at bedtime (dryness). 45 g 2 Active predniSONE (Deltasone) 10 MG tablet TAKE 6 TABLETS BY MOUTH DAILY,X7 DAYS WITH FOOD Active albuterol (2.5 MG/3ML) 0.083% nebulizer solutionIndicat ions:Mild persistent asthma with acute exacerbation Take 3 mL (2.5 mg) by nebulization every 4 (four) hours if needed for wheezing. 75 mL 025 Active Tirzepatide-Mark ght Management (Zepbound) 5 MG/0.5ML solution auto-injector Inject 0.5 mL (5 mg) under the skin 1 (one) time per week. 2 mL 3 025 2025 Active triamcinolone (Kenalog) 0.1 % creamIndication s:Eczema, unspecified type APPLY TO AFFECTED AREA TWICE A DAY 60 g 025 Active albuterol (Ventolin HFA) 108 (90 Base) MCG/ACT inhalerIndicati ons:Mild asthma, unspecified whether complicated, unspecified whether persistent INHALE 2 PUFFS BY MOUTH EVERY 6 HOURS 18 g 11 025 Active ibuprofen 600 MG tabletIndicatio ns:Pain in both lower extremities TAKE 1 TABLET BY MOUTH EVERY 8 HOURS WITH FOOD 90 tablet 025 Active omeprazole (PriLOSEC) [address] capsule Take 1 capsule by mouth in the morning. Everyday before a meal 021 2024 Discontinued(T herapy completed) propranolol (Inderal) 10 MG tablet Take 1 tablet by mouth in the morning. 022 2024 Discontinued(T herapy completed) albuterol (Ventolin HFA) 108 (90 Base) MCG/ACT inhalerIndicati ons:Mild asthma, unspecified whether complicated, unspecified whether persistent INHALE 2 PUFFS BY MOUTH EVERY 6 HOURS 18 g 11 024 2024 Discontinued methocarbamol (Robaxin) 750 MG tabletIndicatio ns:Acute right-sided low back pain without sciatica Take 1 tablet (750 mg) by mouth 4 times daily for 10 days. 40 tablet 024 2024 Discontinued(T herapy completed) Tirzepatide-Mark ght Management (Zepbound) 2.5 MG/0.5ML solution auto-injector Inject 0.5 mL (2.5 mg) under the skin 1 (one) time per week. 2 mL 3 024 2024 Discontinued(S nani effects) ibuprofen 600 MG tabletIndicatio ns:Pain in both lower extremities TAKE 1 TABLET BY MOUTH EVERY 8 HOURS WITH FOOD 90 tablet 025 2024 Discontinued Active Problems Problem Noted Date Diagnosed Date Eczema of both hands 09/19/2024 Assessment & Plan (09/19/2024 2:33 PM EST): Prescribing Valisone and Deltasone. Advised to put Vaseline with gloves at night. Relevant Medications Betamethasone Valerate (Valisone) 0.1% ointment Prednisone (Deltasone) 20 mg tablet Heartburn 12/30/2022 HLD (hyperlipidemia) 12/30/2022 Hyperthyroidism 09/27/2022 Pain in lower limb 07/01/2022 Allergic rhinitis 06/20/2012 Asthma 06/20/2012 Obesity 06/20/2012 Tobacco dependence syndrome 06/20/2012 Varicose veins of lower extremity 06/20/2012 Vitamin D deficiency 06/20/2012 Resolved Problems Problem Noted Date Diagnosed Date Resolved Date Viral upper respiratory tract infection 08/29/2022 06/14/2023 Assessment & Plan (08/29/2022 11:38 AM EST): Patient symptoms started 3 days ago, refers having symptoms of cough, general malise, and runny nose. Got covid tested which was negative, told to maintain well hydrated and rest, in case of worseing symptoms visit er Hyperlipidemia 06/20/2012 05/02/2024 Encounters Date Type Department Care Team Description 01/31/2025 9:40 AM EDT Office Visit [facility] [address] [place] [address] Hypothyroidism (acquired) (Primary Dx); Anxiety 01/31/2025 Travel 01/30/2025 Telephone [facility] [address] [place], [place] [phone] Loretta Sullivan MD Nurse Triage 01/21/2025 Refill [facility] [address] [place] [address] Loretta Sullivan MD Pain in both lower extremities 01/07/2025 Refill [facility] [address] [place] [address] Loretta Sullivan MD Mild asthma, unspecified whether complicated, unspecified whether persistent 12/24/2024 Refill [facility] [address] [place] [address] Loretta Sullivan MD Eczema, unspecified type 12/19/2024 Refill [facility] [address] [place] [address] Loretta Sullivan MD Pain in both lower extremities 12/10/2024 Telephone [facility] [address] [place], [place] [phone] Greta Kim CNM No Show 12/06/2024 Population Health Risk Score Community [facility] ([facility]) Department [address] [phone] Provider, Population Health Generic 12/03/2024 Telephone [facility] [address] [place] [address] Loretta Sullivan MD PA 11/27/2024 Orders Only [facility] [address] [place] [address] Loretta Sullivan MD 11/20/2024 Orders Only [facility] [address] [place] [address] Loretta Sullivan MD 11/12/2024 Refill [facility] [address] [place] [address] Ad Mcwilliams MD Pain in both lower extremities 11/12/2024 Telephone [facility] [address] [facility] [place] [phone] Loretta Sullivan MD Med Refill 11/07/2024 Telephone [facility] [address] [facility] [place] [phone] Loretta Sullivan MD appointment cx from Last 3 Months Immunizations Name Administration Dates Next Due Influenza injectable quadriv alent IIV4 with preservative 06/23/2016 Influenza injectable quadriv alent preservative free 06/14/2023,06/21/2022,08/08/2021,2019 Influenza, IIV3, injectable 06/26/2014 Influenza, Split (incl. landry fied surface antigen) 07/19/2013 Influenza, seasonal, injecta ble, preservative free 07/04/2024 Pfizer Covid-19 Vaccine 12+ 01/01/2021, 1 TD (adult), 2 Lf tetanus tox oid, preservative free, adsorbed 09/27/2004 Tdap 01/31/2018 Social History Tobacco Use Types Packs/Day Years Used Date Smoking Tobacco: Never Passive Smoke Exposure: Never Smokeless Tobacco: Never Tobacco Cessation:Counseling Given: Not Answered Alcohol Use Standard Drinks/Week Comments Never 0 [...] Orientation Straight 07/25/2022 10 :21 AM EDT Last Filed Vital Signs Vital Sign Reading [...] Mass Index 47.8 01/31/2025 9:36 AM EDT Plan of Treatment Upcoming Encounters Date Type Department Care Team (Late st Contact Info) Description 05/09/2025 11:30 AM EDT Office Visit [facility] [address] [facility] [place] [address] Loretta Sullivan MD [address] [place] [phone] Health Maintenance Due Date Last Done Comments CT Colonography 1979 Colonoscopy 1979 Colorectal Cancer Screening 1979 FIT DNA/Cologuard 1979 FIT 1979 FOBT 1979 HIV Screening 1979 Sigmoidoscopy 1979 Alcohol/Substance Use Screening 1991 Family Planning (PISQ) 1994 Hepatitis C Screening 1997 Hepatitis B Vaccines (1 of 3 - 19+ 3-dose series) 1998 Pneumococcal Vaccine: Pediatrics (0 to 5 Years) and At-Risk Patients (6 to 49) Years) (1 of 2 - PCV) 1998 Cervical Cancer Screening 10/13/2021 HPV/Cotest 10/13/2021 10/13/2020 Pap Smear 10/13/2021 10/13/2020, 08/11/2017 COVID-19 Vaccine (3 - 2023- season) 2024 01/01/2021, 12/11/2020 Depression Screening 06/14/2024 06/14/2023, 06/14/20 23 SDOH Screening 07/18/2025 07/18/2024 Tobacco Screening 01/31/2026 01/31/2025 Mammogram 09/20/2026 09/20/2024, 09/20/2024 Lipid Panel 12/13/2026 12/13/2021, 05/26/2021 DTaP/Tdap/Td Vaccines (2 - Td or Tdap) 02/01/2028 01/31/2018, 09/27/2004 Zoster Vaccines (1 of 2) 2029 RSV Patients and Patients Aged 60 years or older (1 - 1-dose 75+ series) 2054 Influenza Vaccine Completed 07/04/2024, , 06/21/2022, Additional [...] patient's age to complete this topic Meningococcal Vaccine Aged Out No chet brandy eligible based on patient's age to complete this topic RSV under 20 months Aged Out No longe r eligible based on patient's age to complete this topic Rotavirus Vaccines Aged Out No longer eligible based on patient's age to complete this topic Procedures Procedure Name Priority Date/Time Associated Diagnosis Comments LIPID PANEL, STANDARD Routine 12/13/2021 9:45 AM EDT HPV MRNA E6/E7 Routine 10/13/2020 2:54 PM EST THINPREP PAP Routine 10/13/2020 2:54 PM EST from Last 3 Months or Most Recently Relevant to Health Maintenance Results * (ABNORMAL) LIPID PANEL, STANDARD (12/13/2021 9:45 AM EDT) Chol/HDLC Ratio 2.9 <5.0 (calc) [facility] Cholesterol, Total 200(H) <200 mg/dL [facility] HDL Cholesterol 70 > OR = 50 mg/dL [facility] LDL Cholesterol 112(H) mg/dL (calc) [facility] Comment: Reference range: <100 ?? Desirable range <100 mg/dL for primary prevention; ?? <70 mg/dL for patients with CHD or diabetic patients ?? with > or = 2 CHD risk factors. ?? LDL-C is now calculated using the Giancarlo ?? calculation, which is a validated novel method providing ?? better accuracy than the Friedewald equation in the ?? estimation of LDL-C. ?? Mario SAWYER et al. ARIAN. 2013;310(19): 4233-9680 ?? (http://education.MyC[employer]Bank.com.com/faq/OVY683) Non-HDL Cholesterol 130(H) <130 mg/dL (calc) [facility] Comment: For patients with diabetes plus 1 major ASCVD risk ?? factor, treating to a non-HDL-C goal of <100 mg/dL ?? (LDL-C of <70 mg/dL) is considered a therapeutic ?? option. Triglycerides 81 <150 mg/dL [facility] 12/13/2021 9:45 AM EDT us Loretta Sullivan MD LAB BLOOD ORDERABLES Final Resul t Performing Organization Address City/[facility]/ZIP Co de Phone Number [facility] [address] [place] [address], * THINPREP PAP (10/13/2020 2:54 PM EST) Clinical Information: None given [facility] COMMENT SEE COMMENT [facility] Comment: EXPLANATORY NOTE: ? The Pap is a screening test for cervical cancer. It is ?? not a diagnostic test and is subject to false negative ?? and false positive results. It is most reliable when a ?? satisfactory sample, regularly obtained, is submitted ?? with relevant clinical findings and history, and when ?? the Pap result is evaluated along with historic and ?? current clinical information. ?? Publication Specialist : SEE COMMENT [facility] Comment: JXM, CT(ASCP) CT screening location: [address] ??[address] Interpretation/R esult: Negative for intraepithelial lesion or malignancy. [facility] LMP: 10/01/2020 [facility] Prev. BX: NONE GIVEN [facility] Prev. PAP: NONE GIVEN [facility] Review Publication Specialist : SEE COMMENT [facility] Comment: MSM, CT(ASCP) CT screening location: [address] ??[address] SOURCE: None given [facility] Statement Of Adequacy: SEE COMMENT [facility] Comment: Satisfactory for evaluation. Endocervical/transformation zone component present. 10/13/2020 2:54 PM EST us Greta Kim CNM LAB PATHOLOGY ORDERABLES Final Result Performing Organization Address [facility]/ZIP Co de Phone Number [facility] [address] [place] [address], * HPV mRNA E6/E7 (10/13/2020 2:54 PM EST) HPV nRNA E6/E7 Not Detected Not Detected [facility] Comment: This test was performed using the APTIMA HPV Assay ([employer] This assay detects E6/E7 viral messenger RNA (mRNA) from 14 high-risk HPV types (16,18,31,33,35,39,45,51,52,56,58,59,66,68). ?? The analytical performance characteristics of this assay have been determined by [employer]. The modifications have not been cleared or approved by the FDA. This assay has been validated pursuant to the CLIA regulations and is used for clinical purposes. 10/13/2020 2:54 PM EST us Greta MARIN LAB BLOOD ORDERABLES Gauri queen Result [facility] [address] from Last 3 Months or Most Recently Relevant to Health Maintenance Insurance [facility] [address] [place] [address] Care Teams Carton Filling Machine Operator Relationship Specialty Start Date End Date Loretta Sullivan MD [address] [place] [phone] PCP - General Family Medicine 10/01/13
--- OUTSIDE RECORDS SUMMARY | 2025-01-31 11:00 | XMS_ITS | Encounter Summary ---
Author Organization [employer] Address [address] [facility] 7[address] [place] [address] Care Team Providers Care Slope Hoist Operator Name Role Phone Loretta Sullivan MD Primary Care Provider [phone] Reason for Visit * Reason Comments Med Refill Encounter Details Date Type Department Care Team (Late Contact Info) Description 04/03/2023 Refill [facility] [address] [place] [address] Loretta Sullivan MD [address] [place] [address] Iron deficiency; Mild asthma, unspecified whether complicated, unspecified whether [...] [facility] [address] [place] [address] Loretta Sullivan MD [address] [place] [address] documented as of this encounter Visit Diagnoses Diagnosis Iron deficiency Disorders of iron metabolism Mild asthma, unspecified whether complicated, unspecified whether persistent documented in this encounter Care Teams Slope Hoist Operator Relationship Specialty Start Date End Date Loretta Sullivan MD [address] [place] [phone] PCP - General Family Medicine 10/01/13 documented as of this encounter
--- OUTSIDE RECORDS SUMMARY | 2025-01-31 11:00 | XMS_ITS | Encounter Summary ---
Author Organization [employer] Address [address] [facility] [address] [place] [address] Care Team Providers Care Perioperative Assistant Name Role Phone Loretta Sullivan MD Primary Care Provider Reason for Visit * Reason Onset Date Comments PA Med 05/06/2024 Encounter Details Date Type Department Care Team (Late st Contact Info) Description 05/06/2024 Telephone [facility] [address] [place] [address] Loretta Sullivan MD [address] [place] [address] PA Med Social History Tobacco Use Types Packs/Day Years [...] encounter Miscellaneous Notes * Telephone Encounter - Hawk Dixon - 05/06/2024 10:57 AM EDT Tc from pt stating that Semaglutide-Weight Management (Wegovy) 0.25 MG/0.5ML solution auto-injectorneeds PA documented in this encounter Plan of Treatment Upcoming Encounters Date Type Department Care Team (Late st Contact Info) Description 05/09/2025 11:30 AM EDT Office Visit [facility] [address] [place] [address] Loretta Sullivan MD [address] [place] [address] documented as of this encounter Visit Diagnoses Not on filedocumented in this encounter Additional Health Concerns Assessment Noted Time PHQ-9 Depression Total Score: 2 06/14/20 23 9:46 AM EDT documented as of this encounter Care Teams Perioperative Assistant Relationship Specialty Start Date End Date Loretta Sullivan MD [address] [place] [address] PCP - General Family Medicine 10/01/13 documented as of this encounter
--- OUTSIDE RECORDS SUMMARY | 2025-01-31 11:00 | XMS_ITS | Encounter Summary ---
Author Organization [employer] Address [address] [facility] [address] [place] [address] Care Team Providers Care Evp And Chief Operating Officer Name Role Phone Loretta Sullivan MD Primary Care Provider [phone] Reason for Visit * Reason Comments Med Refill Encounter Details Date Type Department Care Team (Late Contact Info) Description 05/11/2023 Refill [facility] [address] [place] [address] Loretta Sullivan MD [address] [place] [address] Pain in both lower extremities Social History Tobacco Use Types Packs/Day Years [...] 11:30 AM EDT Office Visit [facility] [address] [place] [address] Loretta Sullivan MD [address] [place] [address] documented as of this encounter Visit Diagnoses Diagnosis Pain in both lower extremities documented in this encounter Care Teams Evp And Chief Operating Officer Relationship Specialty Start Date End Date Loretta Sullivan MD [address] [place] [address] PCP - General Family Medicine 10/01/13 documented as of this encounter
[2025-01-31 14:03] LABS: MANUAL DIFF FLAG NO
[2025-01-31 14:10] LABS: Basophils Absolute Auto 0.1 X10*3/uL (0.0-0.2); Basophils Percent Auto 0.8 % (0-2); Eosinophils Absolute Auto 0.2 X10*3/uL (0.0-0.4); Eosinophils Percent Auto 2.4 % (0-4); Hematocrit 39.1 % (37.0-47.0); Hemoglobin 13.1 g/dl (12.0-16.0); Imm Gran Abs Auto 0.02 X10*3/uL (0.00-0.03); Imm Gran Pct Auto 0.3 % (0.0-0.4); Lymphocytes Absolute Auto 1.9 X10*3/uL (1.2-4.9); Lymphocytes Percent Auto 26.6 % (20-40); Mean Corpuscular HGB Conc 33.5 g/dl (31.0-35.0); Mean Corpuscular Hemoglobin 31.4 pg (27.0-33.0); Mean Corpuscular Volume 93.8 fL (80.0-98.0); Mean Platelet Volume 11.8 fL (9.4-12.3); Monocytes Absolute Auto 0.4 X10*3/uL (0.1-1.2); Monocytes Percent Auto 5.6 % (2-11); Neutrophils Absolute Auto 4.6 x10*3/uL (2.0-8.3); Neutrophils Percent Auto 64.3 % (45-73); Platelet Count 245 X10*3/uL (160-400); Red Blood Count 4.17 X10*6/uL (4.20-5.50); Red Cell Distribution Width 12.6 % (11.0-16.0); White Blood Count 7.1 X10*3/uL (4.8-10.8)
[2025-01-31 14:32] LABS: Estimated Average Glucose 108 mg/dL; Hemoglobin A1C 122.6107 umol/L; Hemoglobin A1c % 5.4 % (<6.0); Total Hemoglobin (HGBA1C) 3423.5649 umol/L
[2025-01-31 14:50] LABS: Alanine Aminotransferase 24 U/L (0-31); Albumin Level 4.5 g/dL (3.5-5.0); Alkaline Phosphatase 99 U/L (39-117); Anion Gap 10 (12-20); Aspartate Amino Transferase 22 U/L (5-31); Bilirubin Direct 0.2 mg/dL (0.0-0.5); Bilirubin Total 0.6 mg/dL (0.0-1.0); Blood Urea Nitrogen 18 mg/dL (9-16); Calcium 9.4 mg/dL (8.4-10.2); Carbon Dioxide 26 mmol/L (22-29); Chloride 104 mmol/L (96-108); Cholesterol 239 mg/dL (<200); Estimated Glomerular Filt Rate > 60; Glucose Fasting 84 mg/dL (60-99); HDL Cholesterol 91 mg/dL (>40); LDL Cholesterol Calculated 131 mg/dL (<100); Potassium 3.9 mmol/L (3.3-5.1); Sodium 136 mmol/L (135-145); TSH reflex Free T4 2.25 uIU/mL (0.32-4.0); Total Protein 7.7 g/dL (6.5-8.0); Triglycerides 86 mg/dL (<150); Vitamin D 25-OH Total 62.6 ng/mL (>30)
[2025-01-31 15:06] LABS: Folate 11.1 ng/mL (> or = 4.0); Vitamin B12 378 pg/mL (200-900)
== END 2025-01-31 10:30 | disposition home or self-care (01) ==
LOC: HO.CHCLDS 10:29
PROVIDERS: Visit Provider Pediatrics
DX: E03.9 Hypothyroidism, unspecified (principal); Z13.1 Encounter for screening for diabetes mellitus
CPT/HCPCS: 36415; 80048; 80061; 80076; 82306; 82607; 82746; 83036; 84443; 85025